=== PATIENT | female | born 1985 | race Caucasian/White ===

== ENCOUNTER 2021-01-05 18:55 | Emergency (ER) | payer MEDICAID ==
[~2021-01-05] VITALS: Ht 152.4 cm; Wt 68.0 kg
[2021-01-05 19:02] VITALS: BP 120/54
--- NOTE | 2021-01-05 19:07 | NUR ---
TENT 1.
--- NOTE | 2021-01-05 19:07 | NUR ---
C/O DRY COUGH, 5/10 EARS, THROAT, MID CHEST PAIN, CONGESTION X 3 DAYS. COVID TESTED POSITIVE IN APRIL 2020. PMH: DENIES
--- NOTE | 2021-01-05 19:40 | NUR ---
SEEN AND EXAMINED BY LEONARDO
--- NOTE | 2021-01-05 19:43 | NUR ---
SWAB FOR NOVEL SENT TO LAB
[2021-01-05] MEDS ORDERED: AMOX-1000 PO ×2 (19:47→19:50)
[2021-01-05] MEDS ORDERED: ACET-2619 PO (19:47)
[2021-01-05 20:00] VITALS: BP 120/54
--- NOTE | 2021-01-05 20:00 | NUR ---
Patient discharged with v/s stable. Written and verbal after care instructions given and explained. Patient alert, oriented and verbalized understanding of instructions. Ambulatory with steady gait. All questions addressed prior to discharge. ID band removed. Patient advised to follow up with PMD. Rx of AUGMENTIN, TYLENOL given. Patient educated on indication of medication including possible reaction and side effects. Opportunity to ask questions provided and answered.
== END 2021-01-05 20:00 | disposition home or self-care (01) ==
LOC: MED 18:55
DX: H66.91 Otitis media, unspecified, right ear (principal); Z20.822 Contact with and (suspected) exposure to COVID-19; R07.9 Chest pain, unspecified; Z98.890 Other specified postprocedural states
CPT/HCPCS: 99283; U0003